=== PATIENT | female | born 1955 | race Caucasian/White ===

== ENCOUNTER 2023-07-28 20:10 | Emergency (ER) | payer MEDICARE, MEDICAID ==
[~2023-07-28] VITALS: Ht 157.5 cm; Wt 60.0 kg
[2023-07-28 20:16] VITALS: O2SAT 97
[2023-07-28] MEDS: KETOROLAC 30MG/ML VIAL IM ONE (23:40)
[2023-07-28] MEDS: METHOCARBAMOL 500MG TABLET PO ONE (23:40)
[2023-07-29] MEDS ORDERED: IBUP-2029 MT (02:38)
[2023-07-29] MEDS ORDERED: HYDR-4001 MT (02:38)
[2023-07-29 03:38] LABS: BASOPHILS % 0.5 % (0.0-2.0); EOSINOPHILS % 0.4 % (0.0-5.0); HEMOGLOBIN. 9.3 g/dL (12.0-16.0); LYMPHOCYTES % 11.3 % (20.0-50.0); MEAN CORPUSCULAR HEMOGLOBIN 28.6 pg (28.0-32.0); MEAN CORPUSCULAR VOLUME 89.4 fL (81.0-99.0); MEAN PLATELET VOLUME 7.6 fl (7.4-10.4); MONOCYTES % 6.4 % (2.0-8.0); NEUTROPHILS % 81.4 % (40.0-76.0); PLATELET 356 x1000/uL (130-400); RED BLOOD CELL COUNT 3.25 mill/uL (4.2-5.4); RED CELL DISTRIBUTION WIDTH 14.8 % (11.6-14.6); WHITE BLOOD COUNT 9.5 x1000/uL (4.5-11.0)
[2023-07-29 03:50] LABS: ALANINE AMINOTRANSFERASE 44 IU/L (10-49); ASPARTATE AMINOTRANSFERASE 78 IU/L (<34); BILIRUBIN TOTAL 0.3 mg/dL (0.1-1.0); CALCIUM 8.7 mg/dL (8.7-10.4); CARBON DIOXIDE 27 mEq/L (21-32); CHLORIDE 105 mEq/L (98-107); CREATININE 1.3 mg/dL (0.6-1.0); GLUCOSE 286 mg/dL (70-105); INR 0.9; PARTIAL THROMBOPLASTIN TIME 23.4 sec (23.4-31.0); POTASSIUM 3.7 mEq/L (3.5-5.1); PROTEIN TOTAL 6.8 g/dL (6.0-8.3); PROTHROMBIN TIME 9.9 sec (9.6-11.0); SODIUM 139 mEq/L (136-145); TROPONIN I HIGH SENSITIVITY 15 ng/L (3.0-34); UREA NITROGEN BLOOD 24 mg/dL (9-23)
[2023-07-29] MEDS: MORPHINE SULFATE 4 MG/ML INJ (FOR IV/IM USE) IV ONE (04:00)
[2023-07-29] MEDS: ONDANSETRON HCL 4MG/2ML INJ IV ONE (04:00)
[2023-07-29 05:55] VITALS: BP 177/82; PULSE 93; RESP 15; TEMP 98.1
== END 2023-07-29 05:45 | disposition short-term general hospital (02) ==
LOC: ER 20:10
DX: S22.49XA Multiple fractures of ribs, unspecified side, initial encounter for closed fracture (principal); S02.609A Fracture of mandible, unspecified, initial encounter for closed fracture; S52.502A Unspecified fracture of the lower end of left radius, initial encounter for closed fracture; S36.229A Contusion of unspecified part of pancreas, initial encounter; E11.9 Type 2 diabetes mellitus without complications; V89.2XXA Person injured in unspecified motor-vehicle accident, traffic, initial encounter; Y93.89 Activity, other specified; Y92.89 Other specified places as the place of occurrence of the external cause; Y99.8 Other external cause status
CPT/HCPCS: 99291; 71045; 73502; 72070; 73110; 73130; 93005; 96372; 99292; 70450; 96374; 96375; 80053; 83690; 85025; 85610; 85730; 86850; 86900; 86901; 84484; 36415; 72125; 72128; 71250; 74176; 29125; J1885; J2405; J2270